=== PATIENT | male | born 2000 | race Caucasian/White ===

== ENCOUNTER 2019-11-14 00:06 | Emergency (ER) | payer BC, OTHER ==
[2019-11-14 00:27] VITALS: BMI 22.1
[2019-11-14] MEDS ORDERED: BACITRACIN 0.9 GM PACKET ONE ×2 (01:07→05:56)
[2019-11-14] MEDS ORDERED: ACETAMINOPHEN 325 MG TABLET (FP) PO ONE (01:09)
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
[2019-11-14] MEDS ORDERED: AZITHROMYCIN 500 MG TABLET ONE (01:36)
[2019-11-14] MEDS ORDERED: cefTRIAXone SODIUM 1 GM VIAL ONE (01:37)
[2019-11-14] MEDS ORDERED: ACETAMINOPHEN 325 MG TABLET (FP) ONE (02:06)
[2019-11-14] MEDS ORDERED: DIPHTH,PERTUSS(ACELL),TET 0.5 ML DISP.SYRIN IM ONE ×2 (02:09)
[2019-11-14] MEDS ORDERED: CEFAZOLIN 2 GM/D5W 2 GM/50 ML ML IVPB ONE (03:42)
[2019-11-14] MEDS ORDERED: ceFAZolin 2 GRAM PREMIX BAG IVPB ONE (03:45)
[2019-11-14 06:16] VITALS: BP 124/65; PULSE 68; TEMP 99.2
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
[2019-11-14] MEDS ORDERED: BACITRACIN/POLYMYXIN B SULFATE 15 GM TUBE TP SCH (10:00)
== END 2019-11-14 06:33 | disposition home or self-care (01) ==
LOC: JER 00:06
PROC: 3E03329 Introduction of Other Anti-infective into Peripheral Vein, Percutaneous Approach (ICD-10-PCS; principal; 2019-11-14)
PROC: 3E0234Z Introduction of Serum, Toxoid and Vaccine into Muscle, Percutaneous Approach (ICD-10-PCS; 2019-11-14)
DX: S81.001A Unspecified open wound, right knee, initial encounter (principal)
CPT/HCPCS: 73562-TC-RT-FY; 73700-TC-RT; 90715; 99284-25

== ENCOUNTER 2021-12-18 22:06 | Emergency (ER) | payer BC ==
[2021-12-18 22:23] VITALS: BP 136/79; PULSE 72; RESP 20; TEMP 98.2; BMI 24.3
== END 2021-12-19 00:24 | disposition home or self-care (01) ==
LOC: JERFT 22:06
DX: S89.91XA Unspecified injury of right lower leg, initial encounter (principal); X50.0XXA Overexertion from strenuous movement or load, initial encounter; Y93.67 Activity, basketball
CPT/HCPCS: 73562-TC-RT-FY; 99283-25